=== PATIENT | female | born 1990 | race African-American/Black ===

== ENCOUNTER 2018-01-29 10:37 | Emergency (ER) | payer MEDICAID ==
[~2018-01-29] VITALS: Ht 152.4 cm; Wt 49.4 kg
[~2018-01-29 10:37] MED LIST: IRONTAB35 OR; PREN-153 OR
[2018-01-29 11:16] VITALS: BP 99/58
[2018-01-29] MEDS ORDERED: KETOROLAC TROMETH 60MG/2ML VIAL IM ONE ×3 (12:00→12:15)
== END 2018-01-29 13:04 | disposition home or self-care (01) ==
LOC: ER 10:37
DX: S02.2XXA Fracture of nasal bones, initial encounter for closed fracture (principal); S16.1XXA Strain of muscle, fascia and tendon at neck level, initial encounter; V43.02XA Car driver injured in collision with other type car in nontraffic accident, initial encounter; Y93.89 Activity, other specified; Y92.488 Other paved roadways as the place of occurrence of the external cause; Y99.8 Other external cause status
CPT/HCPCS: 70160; 96372; 99284; J1885

== ENCOUNTER 2018-12-05 20:39 | Emergency (ER) | payer MEDICAID | END 2018-12-05 21:52 | disposition left against medical advice (07) | LOC: ER 20:39 | DX: R51 Headache (principal); Z53.21 Procedure and treatment not carried out due to patient leaving prior to being seen by health care provider ==

== ENCOUNTER 2018-12-05 22:09 | Emergency (ER) | payer MEDICAID ==
[~2018-12-05] VITALS: Ht 154.9 cm; Wt 54.4 kg
[2018-12-05 22:25] VITALS: BP 119/81
== END 2018-12-06 04:50 | disposition left against medical advice (07) ==
LOC: ER 22:09
DX: R51 Headache (principal); Z53.21 Procedure and treatment not carried out due to patient leaving prior to being seen by health care provider
CPT/HCPCS: 70450; 81025

== ENCOUNTER 2020-09-09 17:48 | Emergency (ER) | payer MEDICAID ==
[~2020-09-09] VITALS: Ht 154.9 cm; Wt 56.7 kg
[~2020-09-09 17:48] MED LIST changes: -PREN-153 OR; +PREN1TAB71 OR
[2020-09-09 18:13] LABS: Urine Bacteria FEW /hpf (None Seen); Urine Blood 3+ /uL (Negative); Urine Mucus FEW (None Seen); Urine Specific Gravity 1.026 (1.001-1.035); Urine WBC 3 /hpf (0 - 5)
[2020-09-09 19:00] VITALS: BP 133/77
== END 2020-09-09 21:16 | disposition home or self-care (01) ==
LOC: ER 17:48
DX: N39.0 Urinary tract infection, site not specified (principal); Z79.899 Other long term (current) drug therapy
CPT/HCPCS: 36415; 76801; 76817; 81001; 81025; 84702

== ENCOUNTER 2023-11-14 21:43 | Observation (INO) | payer MEDICAID ==
[2023-11-14 23:22] LABS: Vaginal Bacteria Moderate; Vaginal Clue Cells Moderate; Vaginal Epithelial Cells Moderate; Vaginal Trichomonas Not Present
== END 2023-11-15 00:59 | disposition home or self-care (01) ==
LOC: LDRP 21:43
PROVIDERS: ADMIT Obstetrics & Gynecology; ATTEND Obstetrics & Gynecology
DX: O23.592 Infection of other part of genital tract in pregnancy, second trimester (principal); B96.89 Other specified bacterial agents as the cause of diseases classified elsewhere; O26.892 Other specified pregnancy related conditions, second trimester; R10.2 Pelvic and perineal pain; O99.332 Smoking (tobacco) complicating pregnancy, second trimester; F17.200 Nicotine dependence, unspecified, uncomplicated; O99.322 Drug use complicating pregnancy, second trimester; F12.90 Cannabis use, unspecified, uncomplicated; Z3A.26 26 weeks gestation of pregnancy; Z91.040 Latex allergy status
CPT/HCPCS: 59025; 81002; 87210; G0378